=== PATIENT | male | born 1965 | race African-American/Black ===

== ENCOUNTER 2024-08-31 11:43 | Inpatient (IN) | payer OTHER ==
[2024-08-31] MEDS ORDERED: DICYCLOMINE HCL 10 MG CAPSULE PO PRN (12:26)
[2024-08-31] MEDS ORDERED: BENZONATATE 200 MG CAPSULE PO PRN (12:26)
[2024-08-31] MEDS ORDERED: NICOTINE POLACRILEX 2 MG GUM BUC PRN (12:26)
[2024-08-31] MEDS ORDERED: BISMUTH SUBSALICYLATE 262 MG/15 ML BTL PO PRN (12:26)
[2024-08-31] MEDS ORDERED: hydrOXYzine PAMOATE 25 MG CAPSULE (FP) PO PRN (12:26)
[2024-08-31] MEDS ORDERED: NALOXONE (NARCAN) HCL 4 MG/0.1 ML SPRAY NS PRN (12:26)
[2024-08-31] MEDS ORDERED: POLYETHYLENE GLYCOL (HEALTHYLAX) 3350 17 GM PACKET PO PRN (12:26)
[2024-08-31] MEDS ORDERED: MAGNESIUM HYDROX 2400MG/30ML ORAL SUSPENSION 30 ML CUP PO PRN (12:26)
[2024-08-31] MEDS ORDERED: BENZOCAINE/MENTHOL (CHLORASEPTIC ) LOZENGE MM PRN (12:26)
[2024-08-31] MEDS ORDERED: P-EPHED 60MG/TRIPROLIDI 2.5MG TABLET PO PRN (12:26)
[2024-08-31] MEDS ORDERED: ONDANSETRON *ODT* 4 MG TABLET SL PRN (12:26)
[2024-08-31] MEDS ORDERED: IBUPROFEN 600 MG TABLET (FP) PO PRN (12:26)
[2024-08-31] MEDS ORDERED: IBUPROFEN 400 MG TABLET (FP) PO PRN (12:26)
[2024-08-31] MEDS ORDERED: NICOTINE POLACRILEX 2 MG LOZENGE BC PRN (12:26)
[2024-08-31] MEDS ORDERED: LOPERAMIDE HCL 2 MG CAPSULE PO PRN (12:26)
[2024-08-31] MEDS ORDERED: ACETAMINOPHEN 325 MG TABLET (FP) PO PRN (12:26)
[2024-08-31] MEDS ORDERED: MAG HYDROX/AL HYDROX/SIMETH 30 ML UNIT-DOSE CUP PO PRN (12:26)
[2024-08-31] MEDS: CLOPIDOGREL BISULFATE 75 MG TABLET (FP) PO SCH (14:33)
[2024-08-31] MEDS: ASPIRIN COATED 81 MG TABLET.EC PO SCH (14:33)
[2024-08-31] MEDS: THIAMINE 100 MG TABLET PO SCH (22:52)
[2024-08-31] MEDS: CARVEDILOL 3.125 MG TABLET (FP) PO SCH (22:52)
[2024-08-31] MEDS: ATORVASTATIN CA 40 MG TABLET (FP) PO SCH (22:52)
[2024-08-31] MEDS: MELATONIN 5 MG TABLETS PO SCH (22:52)
[2024-08-31] MEDS: METHOCARBAMOL 500 MG TABLET PO PRN (22:52)
[2024-09-01] MEDS: PRENATAL VITAMINS W/ FOLIC ACID TABLET (FP) PO SCH (10:40)
[2024-09-01] MEDS: FOLIC ACID 1 MG TABLET (FP) PO SCH (10:42)
[2024-09-01] MEDS: amLODIPine BESYLATE 5 MG TABLET (FP) PO SCH (10:42)
[2024-09-01] MEDS: guaiFENesin 600 MG TABLET.ER (FP) PO PRN (10:45)
[2024-09-01 11:35] LABS: POTASSIUM 4.6 mmol/L (3.5-5.1)
[2024-09-01 11:40] LABS: HEMATOCRIT 37.6 % (35.4-49); HEMOGLOBIN 13.2 GM/dL (11.7-16.9); MCH 32.5 pg (25.7-33.7); MCHC 35.1 g/dl (32.0-35.9); MEAN CELL VOLUME 92.7 fl (80-96); PLATELET COUNT 274 10^3/uL (134-434); RBC 4.06 M/mm3 (4.00-5.60); RDW 13.1 % (11.9-15.9); WHITE BLOOD COUNT 3.8 K/mm3 (4.0-10.0)
[2024-09-01 11:54] LABS: ALBUMIN 3.3 g/dl (3.4-5.0)
[2024-09-01 11:56] LABS: CALCIUM 9.2 mg/dL (8.5-10.1)
[2024-09-01 11:58] LABS: CREATININE 1.6 mg/dL (0.55-1.3)
[2024-09-02] MEDS: NALOXONE (NYS OPIOID OVERDOSE PROGRAM) 4 MG/0.1 ML SPRAY NS SCH (10:33)
[2024-09-02 11:06] VITALS: BP 115/76; PULSE 90; RESP 20; TEMP 98
== END 2024-09-02 11:23 | disposition other institution (70) | DRG 773 ==
LOC: YASAS 11:43 → Y6N 13:35
PROVIDERS: ADMIT Allergy & Immunology; ATTEND Allergy & Immunology
PROC: HZ2ZZZZ Detoxification Services for Substance Abuse Treatment (ICD-10-PCS; principal; 2024-08-31)
DX: F11.23 Opioid dependence with withdrawal (principal); F17.210 Nicotine dependence, cigarettes, uncomplicated; I25.10 Atherosclerotic heart disease of native coronary artery without angina pectoris; I11.0 Hypertensive heart disease with heart failure; I50.9 Heart failure, unspecified; I73.9 Peripheral vascular disease, unspecified; R63.4 Abnormal weight loss; Z68.20 Body mass index [BMI] 20.0-20.9, adult; Z86.73 Personal history of transient ischemic attack (TIA), and cerebral infarction without residual deficits
CPT/HCPCS: 36415; 80053; 85027; 86780; 87811; 93005; 93010

== ENCOUNTER 2024-09-02 11:29 | Inpatient (IN) | payer OTHER ==
[2024-09-02] MEDS ORDERED: BENZONATATE 200 MG CAPSULE PO PRN (14:07)
[2024-09-02] MEDS ORDERED: IBUPROFEN 600 MG TABLET (FP) PO PRN (14:07)
[2024-09-02] MEDS ORDERED: NICOTINE POLACRILEX 2 MG GUM BUC PRN (14:07)
[2024-09-02] MEDS ORDERED: guaiFENesin 600 MG TABLET.ER (FP) PO PRN (14:07)
[2024-09-02] MEDS ORDERED: ACETAMINOPHEN 325 MG TABLET (FP) PO PRN (14:07)
[2024-09-02] MEDS ORDERED: POLYETHYLENE GLYCOL (HEALTHYLAX) 3350 17 GM PACKET PO PRN (14:07)
[2024-09-02] MEDS ORDERED: LOPERAMIDE HCL 2 MG CAPSULE PO PRN (14:07)
[2024-09-02] MEDS ORDERED: MAGNESIUM HYDROX 2400MG/30ML ORAL SUSPENSION 30 ML CUP PO PRN (14:07)
[2024-09-02] MEDS ORDERED: IBUPROFEN 400 MG TABLET (FP) PO PRN (14:07)
[2024-09-02] MEDS ORDERED: BENZOCAINE/MENTHOL (CHLORASEPTIC ) LOZENGE MM PRN (14:07)
[2024-09-02] MEDS ORDERED: MAG HYDROX/AL HYDROX/SIMETH 30 ML UNIT-DOSE CUP PO PRN (14:07)
[2024-09-02] MEDS: TUBERCULIN PPD 5 TU/0.1ML VIAL ID ONE (17:50)
[2024-09-02] MEDS: MELATONIN 5 MG TABLETS PO SCH (22:37)
[2024-09-02] MEDS: ATORVASTATIN CA 40 MG TABLET (FP) PO SCH (22:37)
[2024-09-02] MEDS: CARVEDILOL 3.125 MG TABLET (FP) PO SCH (22:37)
[2024-09-03] MEDS: PRENATAL VITAMINS W/ FOLIC ACID TABLET (FP) PO SCH (05:42)
[2024-09-03] MEDS: hydrOXYzine PAMOATE 25 MG CAPSULE (FP) PO PRN (05:43)
[2024-09-03] MEDS: METHOCARBAMOL 500 MG TABLET PO PRN (05:43)
[2024-09-03] MEDS: ASPIRIN 81 MG CHEWABLE TABLETS PO SCH (09:37)
[2024-09-03] MEDS: amLODIPine BESYLATE 5 MG TABLET (FP) PO SCH (09:38)
[2024-09-03] MEDS: CLOPIDOGREL BISULFATE 75 MG TABLET (FP) PO SCH (09:38)
[2024-09-03] MEDS: THIAMINE 100 MG TABLET PO SCH (09:38)
[2024-09-03] MEDS: FOLIC ACID 1 MG TABLET (FP) PO SCH (09:38)
[2024-09-03] MEDS: PNEUMOC 20-VAL CONJ-DIP CRM/PF 0.5 ML SYRINGE IM ONE (12:23)
[2024-09-03] MEDS: FLU VACC QS2022-23(6MOS UP)/PF 60 MCG/0.5 ML SYRINGE IM ONE (12:24)
[2024-09-07 11:23] LABS: BASO % 0.2 % (0-2.0); EOS % 0.8 % (0-4.5); HEMATOCRIT 38.5 % (35.4-49); HEMOGLOBIN 12.8 GM/dL (11.7-16.9); MCHC 33.2 g/dl (32.0-35.9); MEAN CELL VOLUME 90.4 fl (80-96); MEAN PLT VOLUME 8.2 fl (7.5-11.1); MONO % 8.2 % (3.8-10.2); NEUT % 71.8 % (42.8-82.8); PLATELET COUNT 385 10^3/uL (134-434); RBC 4.25 M/mm3 (4.00-5.60); RDW 12.8 % (11.9-15.9); WHITE BLOOD COUNT 6.9 K/mm3 (4.0-10.0)
[2024-09-07 11:30] LABS: POTASSIUM 4.4 mmol/L (3.5-5.1)
[2024-09-07 11:32] LABS: ALBUMIN 3.2 g/dl (3.4-5.0); CALCIUM 9.2 mg/dL (8.5-10.1)
[2024-09-07 11:33] LABS: BLOOD UREA NITROGEN 20.6 mg/dL (7-18)
[2024-09-07 11:36] LABS: CREATININE 1.2 mg/dL (0.55-1.3)
[2024-09-07 11:38] LABS: BILIRUBIN,TOTAL 0.6 mg/dL (0.2-1); TOT PROT 7.3 g/dl (6.4-8.2)
[2024-09-19] MEDS: VARENICLINE TARTRATE 0.5 MG TAB PO SCH (16:50)
[2024-09-20] MEDS: traZODone HCL 50 MG TABLET (FP) PO SCH (21:18)
[2024-09-23] MEDS: VARENICLINE TARTRATE 0.5 MG TAB PO SCH (09:43)
[2024-09-27] MEDS: VARENICLINE TARTRATE 1 MG TAB PO SCH (10:04)
[2024-09-29 06:31] VITALS: BP 152/95; PULSE 86; RESP 16; TEMP 97.8
== END 2024-09-29 09:44 | disposition home or self-care (01) | DRG 772 ==
LOC: YASAS 11:29 → Y3NR 11:30 → Y3E 09-04 10:33
PROVIDERS: ADMIT Psychiatry & Neurology Pain Medicine; ATTEND Psychiatry & Neurology Pain Medicine
PROC: HZ42ZZZ Group Counseling for Substance Abuse Treatment, Cognitive-Behavioral (ICD-10-PCS; principal; 2024-09-02)
DX: F11.20 Opioid dependence, uncomplicated (principal); F17.210 Nicotine dependence, cigarettes, uncomplicated; F19.282 Other psychoactive substance dependence with psychoactive substance-induced sleep disorder; I25.10 Atherosclerotic heart disease of native coronary artery without angina pectoris; I10 Essential (primary) hypertension; I50.9 Heart failure, unspecified; I73.9 Peripheral vascular disease, unspecified; Z86.73 Personal history of transient ischemic attack (TIA), and cerebral infarction without residual deficits
CPT/HCPCS: 36415; 80053; 82962; 83036; 85025; 90677; G0008; G0009; Q2036